=== PATIENT | female | born 1965 | race Caucasian/White ===

== ENCOUNTER → 2024-11-18 13:07 | Outpatient (REF) | payer BC, SELFPAY | LOC: WDC 13:07 | PROVIDERS: ATTENDING PHYSICIAN Physician Assistant Medical | DX: Z12.31 Encounter for screening mammogram for malignant neoplasm of breast (principal); N64.4 Mastodynia | CPT/HCPCS: 76642; 77063; 77067 ==

== ENCOUNTER 2025-08-27 10:55 | Emergency (ER) | payer BC, SELFPAY ==
[2025-08-27 11:07] VITALS: BP 132/73
[2025-08-27 12:00] VITALS: BP 114/68
--- NOTE | 2025-08-27 12:12 | ED.GENMED ---
History of Present Illness
General
Chief Complaint: Musculo-Skeletal Complaint
Source: patient
Exam Limitations: none
Time Seen by Provider: 08/27/25 11:35
Nursing documentation reviewed up to this point in time: agreed with
History of Present Illness
History of Present Illness:
see MDM
Past History
Past History
ED Past Medical History: Hypercholesterolemia, Hypothyroidism and Other (Fibroids)
ED Past Surgical History: (X2,), Gynecological (D&C with polyp removal.) and Tonsilectomy
Social History
Tobacco: Non-smoker
Alcohol: Occasional
Personal:
Living: with family
Review of Systems
Review of Systems
Allergies reviewed?: Yes
All Other Systems: Not applicable
Phy Exam
Physical Exam
Physical Exam:
see MDM
Course
Orders/Labs/Results
Orders:
Orders
08/27/25 12:00
Hip, Left 2-3 Views [CR Hip - LT w/wo Pel 2-3 Vw*] Urgent
Comment:
Reason For Exam: L hip pain x 1 week
Include a pelvis x-ray?: Yes
Vital Signs
Initial and Last Documented VS:
Initial Vital Signs
Temp Pulse Resp BP Pulse Ox
36.9 C 62 18 132/73 100
08/27/25 11:07 08/27/25 11:07 08/27/25 11:07 08/27/25 11:07 08/27/25 11:07
Last Documented Vital Signs
Temp Pulse Resp BP Pulse Ox
36.6 C 60 18 114/68 99
08/27/25 12:00 08/27/25 12:00 08/27/25 12:00 08/27/25 12:00 08/27/25 12:20
MDM/Problems Addressed
Differential Diagnosis Includes:
see MDM
MDM/Problems Addressed:
Note:
CHIEF COMPLAINT(S)
Pain in the right hip and knee, described as a 'pinging' sensation likened to a rubber band.
HISTORY OF PRESENT ILLNESS
The patient is a 60-year-old female presenting with pain in the right hip and knee. The pain commenced on Friday with a peculiar 'ping' sensation that occasionally resembles a rubber band and extends from the hip to the knee. The patient reported
the pain as progressively worsening, significantly affecting her mobility. Initially, she sought relief through massage, rn care transition, and acupuncture, but these interventions have not provided lasting relief. Her condition has been further
complicated by increased activity levels, as she is highly active, engaging in workouts five to six days a week and participating in a [employer] team. The patient recounts the initial onset of analogous pain approximately eight months ago, which
was primarily nocturnal and relieved upon position changes.
She describes the pain as debilitating and reports difficulty walking, notably impacting her ability to walk her dog. She also experienced weakness in her leg, causing concern about instability while walking. Intermittent numbness is noted in
association with the hip pain, leading to a sensation of the leg potentially 'giving out.' The patient denies significant history of sciatica, although she experiences increased urinary frequency recently without having prior urinary tract
infections.
The pain has been persistent despite initial self-care strategies, including intermittent use of ibuprofen, which did not yield satisfactory improvement. She has not continued nonsteroidal anti-inflammatory medications recently.
PAST MEDICAL AND SURGICAL HISTORY
The patient maintains a very active lifestyle and has a history of intermittent musculoskeletal pains managed conservatively with physical therapy.
SOCIAL DETERMINANTS AFFECTING HEALTH
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
PHYSICAL EXAM
- Vital signs reviewed; nursing notes indicate normal findings.
- Musculoskeletal examination of the right hip shows no discernible swelling or redness. Pain was elicited with specific maneuvers suggestive of internal hip derangement.
- A clicking sensation was appreciated during hip manipulation, supporting mechanical etiology.
- Neurologic exam found the leg sensation intact and bilateral lower extremity strength within normal limits.
PROBLEM LIST
Acute:
- Mechanical hip pain with associated weakness.
- Recent increased urinary frequency.
Chronic:
- Chronic musculoskeletal discomfort associated with high activity levels.
PLAN
- Arrange imaging studies to evaluate for structural abnormalities within the hip joint, particularly assessing for joint space narrowing, labral tear, or other signs of mechanical derangement.
- Trial of nonsteroidal anti-inflammatory drugs (NSAIDs) for five days to manage inflammation.
- Referral for physical therapy targeting gluteus medius strengthening.
- Discuss steroid treatment options to address persistent inflammation.
- Follow-up with the primary care provider for continued management and consideration of alternative pain management strategies if conservative measures prove ineffective.
DIFFERENTIAL DIAGNOSIS
The Differential Diagnosis includes, in no particular order and is not limited to:
1. Labral tear of the hip
2. iliotibial band syndrome
3. Trochanteric bursitis
4. Osteoarthritis of the hip joint
5. Femoroacetabular impingement
6. Sacroiliac joint dysfunction
7. Greater trochanter pain syndrome
8. Lumbar radiculopathy
9. Referred pain from lumbar spine pathology
10. Hip flexor strain
60 y/o F atrauamtic L hip pain, lateral also L Lateral knee pain, someites feels the pain laterally down the thigh x 1 week
does exercsie daily 6 days a week, very active
has been having pain intermittently x 1 year but never this consistent
feels like her L leg will give out smetimes due tpain
no weakness, numbness
no shooting pains
no swelling, redness
tried motrin x 2 but doesn't like taking meds
on exam pt says she feels some clicking sometimes but cannot appreciate on exam
has very good ROM of the hip with minimal discomfort
do not suspect bursitis
knee normal
xrays indep reviewed, pt has no signficnat OA but has a stable subcortical cyst
oculd indicate OA
feel that she would benefit from round of nancy and PT
pt agreeable
ortho f/u recommended
oculd also be IT band syndrome
strengthening of her glutes recommended
*Pulse Oximetry
SaO2: 99
Oxygen Mode of Delivery: Room air
Patient hypoxic: no (99)
*Critical Care Note
Total Time (30-74mins, 75-104mins- exclusive of procedures): Not Applicable
ED Attending Note
-
Portions of this chart may have been created with voice recognition software.� Occasional wrong word or��sound alike� substitutions may have occurred due to the inherent limitations of voice recognition software.
Discharge Plan
Departure
Patient Disposition: Home (Routine Discharge)
Date of Disposition: 08/27/25
Time of Disposition: 13:59
Patient with high blood pressure during this ER visit?: No
Condition: Fair
Covid-19: Not Applicable
Discharge Problem:
Hip joint pain
Instructions: Muscle and Bone Pain (DC)
Prescriptions:
New
methylprednisolone [Medrol (Walt)] 4 mg tablets,dose pack
See Rx Instructions .ROUTE .COMPLEX Qty: 21 0RF
Rx Instructions:
for 6 days
No Action
Natural Thyroid Medication
1 dose PO DAILY
pantoprazole [Protonix] 40 mg tablet,delayed release (DR/EC)
40 mg PO DAILY Qty: 30 0RF
Referrals:
Leonard Elliott MD [Active, Orthopedics] - Follow up in 5-7 days
Activity Restrictions/Additional Instructions:
Your x-ray showed a stable subcortical cyst in your left hip which was seen previously on x-rays in 2020. This can be completely asymptomatic or could be related to having mild osteoarthritis. You did not have significant osteoarthritis in either
hip but do have mild SI joint arthritis. He should try anti-inflammatories, will try round of steroids and a Medrol Dosepak starting tomorrow morning take as instructed
You can also take Tylenol for pain. Follow-up with orthopedics for further evaluation. You could also consider physical therapy
And strengthening of your glutes muscles
Return for severe pain, inability to walk, fever, chills, skin changes, weakness etc.
Interventions
Interventions:
*Risk Screen - Suicide Last Done: 08/27/25 11:07
*General Assessment Last Done: 08/27/25 11:07
*Neglect/Abuse Screening Last Done: 08/27/25 11:07
*ED- Fall Risk Assessment Last Done: 08/27/25 11:59
*Nursing Disposition Last Done: 08/27/25 14:02
ED-Musculoskeletal Assessment Last Done: 08/27/25 11:59
Discharge Date and Time
Discharge Date/Time: 08/27/25 14:13
Print Language: [place]
== END 2025-08-27 14:13 | disposition home or self-care (01) ==
LOC: EMR 10:55
PROVIDERS: EMERGENCY PHYSICIAN Emergency Medicine; FAMILY PHYSICIAN Physician Assistant Medical
DX: M25.552 Pain in left hip (principal); M25.562 Pain in left knee; E03.9 Hypothyroidism, unspecified; E78.00 Pure hypercholesterolemia, unspecified
CPT/HCPCS: 99283; 73502

== ENCOUNTER → 2025-10-07 10:17 | Outpatient (REF) | payer BC, SELFPAY | LOC: HWRAD 10:17 | PROVIDERS: ATTENDING PHYSICIAN Obstetrics & Gynecology; FAMILY PHYSICIAN Physician Assistant Medical | DX: N95.0 Postmenopausal bleeding (principal) | CPT/HCPCS: 76830; 76856 ==

== ENCOUNTER 2025-11-15 06:19 | Day surgery (SDC) | payer BC, SELFPAY ==
[2025-11-04 09:10] LABS: Hematocrit 43.4 % (37.0-47.0); Hemoglobin 14.5 g/dL (12.0-16.0); Mean Corp Hgb Conc. 33.4 g/dL (33.0-37.0); Mean Corpuscular Volume 93.3 fL (81.0-99.0); Nucleated Red Blood Cells % 0 %; Platelet Count 187 10^3/uL (130-400); Red Cell Dist. Width 12.8 % (11.5-14.5)
[2025-11-04 09:54] LABS: Blood Urea Nitrogen 17 mg/dl (7-17); Calcium 9.4 mg/dl (8.4-10.2); Carbon Dioxide 30 mmol/L (22-30); Chloride 102 mmol/L (98-107); Glucose 85 mg/dl (70-99); Potassium 4.8 mmol/L (3.5-5.1); Sodium 137 mmol/L (135-145); eGFR 57.17
[2025-11-04 13:14] VITALS: BMI 20.7
--- NOTE | 2025-11-08 07:48 | PTCARENOTE ---
Addendum entered by Cris Hurtado RN 11/08/25 07:49:
Dr Dutta office
Original Note:
Patients 11/04 Creat-1.1; GFR- 57.17- Dina @ Dr. Amado office notified
[2025-11-15] VITALS (9 sets, daily range): BP systolic 97–127; BP diastolic 63–75; BMI 20.7
[2025-11-15] MEDS: TYLENOL 1000 MG PO (09:45)
[2025-11-15] MEDS: NORMOSOL-R/PLASMALYTE-A 1000 IV (09:52)
== END 2025-11-15 13:57 | disposition home or self-care (01) ==
LOC: SDS 06:19
PROVIDERS: ATTENDING PHYSICIAN Obstetrics & Gynecology; FAMILY PHYSICIAN Physician Assistant Medical; OTHER PHYSICIAN Internal Medicine Cardiovascular Disease
DX: N95.0 Postmenopausal bleeding (principal)
CPT/HCPCS: 58558; 80048; 85025; 86850; 86900; 86901; 88305; 93005